=== PATIENT | female | born 1980 | race African-American/Black ===

== ENCOUNTER 2017-03-08 01:32 | Emergency (ER) | payer OTHER ==
[~2017-03-08] VITALS: Ht 160 cm; Wt 48.1 kg
--- NOTE | ~2017-03-08 | EKG ---
[address] [place] [address] ELECTROCARDIOGRAM REPORT Name: YAMEL JETT [id number] Admission: 03/08/17 Attend Phys: Discharge: 03/08/17 Date of : 82 Report #: [id number] THIS REPORT FOR: //name// [facility] ED Test Date: 2017-03-08 Test Time: 01:36:54 Pat Name: YAMEL JETT Department: Room: Gender: F Superintendent Service: JENAE : 1980 Requested By: Lynette Posey Order Number: [id number] MD: Sg Lord Measurements Intervals [place] Rate: 86 P: 45 ME: 169 QRS: 5 QRSD: 88 T: 15 QT: 381 QTc: 456 Interpretive Statements Sinus rhythm Anterior infarct, age indeterminate No previous ECG available for comparison Electronically Signed On 03-08-2017 17:53:55 CDT by Sg Lord [email or web address] <ELECTRONICALLY SIGNED> By: Sg Lord MD, [facility] 03/08/17 1753 0136 0136 Sg Lord MD, FACC /EPI
[~2017-03-08 01:32] MED LIST: DEPO-PROVERA; HYDROXYZINE HCL25 M1 PO; IBUPROFEN 400400 M2 PO; MEDROLDOSEPACK PO; NOHOMEMEDICATIONS; NORCO 5-325 TA1 EACH PO; PERCOCET PO; TRAMADOL 50 MG50 MG PO; TRINATE TABLET1 TAB PO
[2017-03-08 01:49] LABS: ABSOLUTE NEUTROPHILS 2.8 thou/uL (1.4-8.2); BASOPHILS 0.7 % (0.0-2.0); EOSINOPHILS 0.7 % (0.0-3.0); LYMPHOCYTES 49.6 % (24.0-44.0); MCH 26.2 pg (26.0-34.0); MCHC 33.2 g/dL (28.0-37.0); MCV 78.9 fL (80.0-100.0); MONOCYTES 6.6 % (1.0-8.0); PLATELET COUNT 245 thou/uL (150-400); POLYS 42.4 % (36.0-66.0); RBC 4.95 mil/uL (4.20-5.00); RDW 16.1 % (10.5-14.5); WBC 6.7 thou/uL (4.0-11.0)
[2017-03-08 01:51] LABS: URINE BILIRUBIN NEGATIVE (Negative); URINE BLOOD NEGATIVE (Negative); URINE COLOR YELLOW; URINE GLUCOSE-RANDOM* NEGATIVE (Negative); URINE KETONES NEGATIVE (Negative); URINE NITRITE NEGATIVE (Negative); URINE PROTEIN (DIPSTICK) NEGATIVE (Negative); URINE SPECIFIC GRAVITY <= 1.005 (1.003-1.035); URINE UROBILINOGEN 0.2 E.U./dl (0.2-1.0)
[2017-03-08 01:53] LABS: MANUAL DIFF NO
[2017-03-08 01:55] LABS: ANION GAP 15 mmol/L (7-16); BUN 9 mg/dL (7-18); CALCIUM 9.4 mg/dL (8.5-10.1); CHLORIDE 102 mmol/L (98-107); CO2 23 mmol/L (21-32); CREATININE 0.7 mg/dL (0.6-1.0); GLUCOSE 93 mg/dL (74-106); POTASSIUM 3.1 mmol/L (3.5-5.1); SODIUM 140 mmol/L (136-145)
[2017-03-08 02:04] LABS: TROPONIN-I < 0.04 ng/mL (<0.04-0.07)
[2017-03-08] MEDS ORDERED: NORCO 5-325 TA1 EACH PO (02:12)
[2017-03-08 02:30] VITALS: BP 144/108
== END 2017-03-08 02:30 | disposition home or self-care (01) ==
LOC: ER 01:32
PROVIDERS: Emergency Medicine
DX: R07.89 Other chest pain (principal); E87.6 Hypokalemia; R09.1 Pleurisy; Z90.49 Acquired absence of other specified parts of digestive tract; F10.99 Alcohol use, unspecified with unspecified alcohol-induced disorder

== ENCOUNTER 2018-02-07 20:50 | Emergency (ER) | payer OTHER ==
[~2018-02-07] VITALS: Ht 160 cm; Wt 45.8 kg
--- NOTE | ~2018-02-07 | EKG ---
[address] [place] [address] ELECTROCARDIOGRAM REPORT Name: YAMEL JETT [facility] [id number] Admission: 02/07/18 Attend Phys: Discharge: 02/07/18 Date of : 82 Report #: [id number] THIS REPORT FOR: //name// [facility] ED Test Date: 2018-02-07 Test Time: 22:18:44 Pat Name: YAMEL JETT Department: Room: Gender: F Toddler Guide: sharla reynoso : 1980 Requested By: Umair Garza Order Number: [id number] MD: Sg Lord Measurements Intervals [place] Rate: 85 P: 51 ND: 171 QRS: 6 QRSD: 82 T: 7 QT: 366 QTc: 436 Interpretive Statements Sinus rhythm Right ventricular conduction delay Anterior infarct, age indeterminate Compared to ECG 03/08/2017 01:36:54 No significant changes Electronically Signed On 02-08-2018 8:04:23 CDT by Sg Lord [email or web address] <ELECTRONICALLY SIGNED> By: Sg Lord MD, [facility] 02/08/18 0804 17 17 Sg Lord MD, [facility] /EPI
[~2018-02-07 20:50] MED LIST changes: +BIRTH CONTROL PILL; +LOPRESSOR50 PO; +PRINIVIL10 MG PO
[2018-02-07] MEDS ORDERED: DEPO-PROVE150 MG/11 IM (21:37)
[2018-02-07 22:43] LABS: ABSOLUTE NEUTROPHILS 2.6 thou/uL (1.4-8.2); BASOPHILS 0.4 % (0.0-2.0); HEMATOCRIT 35.3 % (37.0-47.0); LYMPHOCYTES 46.8 % (24.0-44.0); MCH 26.4 pg (26.0-34.0); MCV 77.7 fL (80.0-100.0); MONOCYTES 8.7 % (1.0-8.0); PLATELET COUNT 221 thou/uL (150-400); POLYS 43.1 % (36.0-66.0); RBC 4.54 mil/uL (4.20-5.00); RDW 15.6 % (10.5-14.5)
[2018-02-07 22:50] LABS: ANION GAP 17 mmol/L (7-16); BUN 10 mg/dL (7-18); CALCIUM 9.4 mg/dL (8.5-10.1); CHLORIDE 103 mmol/L (98-107); CO2 22 mmol/L (21-32); CREATININE 0.7 mg/dL (0.6-1.0); GLUCOSE 97 mg/dL (74-106); POTASSIUM 3.1 mmol/L (3.5-5.1); SODIUM 142 mmol/L (136-145)
[2018-02-07 22:59] LABS: TROPONIN-I <0.06 ng/mL (<0.06)
[2018-02-07] MEDS ORDERED: K-DUR 20 MEQ T20 MEQ PO (23:31)
[2018-02-07] MEDS ORDERED: NORVASC2.5 MG PO (23:45)
[2018-02-07 23:53] VITALS: BP 145/104
== END 2018-02-07 23:57 | disposition home or self-care (01) ==
LOC: ER 20:50
PROVIDERS: Physician Assistant
DX: I10 Essential (primary) hypertension (principal); E87.6 Hypokalemia; M79.672 Pain in left foot; R07.89 Other chest pain; F17.210 Nicotine dependence, cigarettes, uncomplicated; Z90.49 Acquired absence of other specified parts of digestive tract; Z98.890 Other specified postprocedural states

== ENCOUNTER 2020-02-27 02:35 | Emergency (ER) | payer OTHER ==
[~2020-02-27] VITALS: Ht 160 cm; Wt 47.6 kg
[~2020-02-27 02:35] MED LIST changes: +DEPO-PROVE150 MG/11 IM; +K-DUR 20 MEQ T20 MEQ PO; +NORVASC2.5 MG PO
[2020-02-27 02:36] VITALS: BP 158/115
== END 2020-02-27 03:41 | disposition home or self-care (01) ==
LOC: ER 02:35
DX: R05 Cough (principal); N94.89 Other specified conditions associated with female genital organs and menstrual cycle; I10 Essential (primary) hypertension; F17.210 Nicotine dependence, cigarettes, uncomplicated; Z90.49 Acquired absence of other specified parts of digestive tract

== ENCOUNTER 2020-10-04 05:17 | Emergency (ER) | payer OTHER ==
[~2020-10-04] VITALS: Ht 160 cm; Wt 47.6 kg
[2020-10-04 06:01] LABS: ABSOLUTE NEUTROPHILS 4.1 thou/uL (1.4-8.2); BASOPHILS 0.5 % (0.0-2.0); EOSINOPHILS 0.4 % (0.0-3.0); HEMATOCRIT 35.3 % (37.0-47.0); HEMOGLOBIN 11.5 gm/dL (12.0-15.0); MCH 25.4 pg (26.0-34.0); MCHC 32.6 g/dL (28.0-37.0); MCV 77.7 fL (80.0-100.0); MONOCYTES 7.4 % (1.0-8.0); PLATELET COUNT 223 thou/uL (150-400); POLYS 54.7 % (36.0-66.0); RBC 4.55 mil/uL (4.20-5.00); RDW 14.5 % (10.5-14.5); WBC 7.6 thou/uL (4.0-11.0)
[2020-10-04 06:20] LABS: URINE BILIRUBIN NEGATIVE (Negative); URINE BLOOD TRACE (Negative); URINE CLARITY CLEAR; URINE COLOR YELLOW; URINE GLUCOSE-RANDOM* NEGATIVE (Negative); URINE KETONES NEGATIVE (Negative); URINE LEUKOCYTES-REFLEX TRACE (Negative); URINE NITRITE-REFLEX NEGATIVE (Negative); URINE PROTEIN (DIPSTICK) TRACE (Negative); URINE SPECIFIC GRAVITY 1.015 (1.005-1.035)
[2020-10-04 06:26] LABS: CALCIUM 8.9 mg/dL (8.5-10.1); CREATININE 0.5 mg/dL (0.6-1.0); POTASSIUM 3.5 mmol/L (3.5-5.1)
[2020-10-04 06:29] LABS: ALBUMIN 3.6 g/dL (3.4-5.0); TOTAL BILIRUBIN 0.9 mg/dL (0.2-1.0); TOTAL PROTEIN 7.6 g/dL (6.4-8.2)
[2020-10-04] MEDS ORDERED: ZOFRAN ODT4 MG PO (09:06)
[2020-10-04] MEDS ORDERED: NORCO5 PO (09:06)
[2020-10-04] MEDS ORDERED: MACROBID 100 M100 M1 PO (09:06)
[2020-10-04 09:41] VITALS: BP 133/94
== END 2020-10-04 09:42 | disposition home or self-care (01) ==
LOC: ER 05:17
PROVIDERS: Emergency Medicine
DX: R10.31 Right lower quadrant pain (principal); I10 Essential (primary) hypertension; F17.210 Nicotine dependence, cigarettes, uncomplicated; Z90.49 Acquired absence of other specified parts of digestive tract

== ENCOUNTER 2021-02-12 01:32 | Emergency (ER) | payer OTHER ==
[~2021-02-12] VITALS: Ht 160 cm; Wt 47.6 kg
[~2021-02-12 01:32] MED LIST changes: +MACROBID 100 M100 M1 PO; +NORCO5 PO; +ZOFRAN ODT4 MG PO
[2021-02-12 01:40] VITALS: BP 138/95
[2021-02-12] MEDS ORDERED: MOBIC15 MG PO (03:47)
== END 2021-02-12 04:33 | disposition home or self-care (01) ==
LOC: ER 01:32
DX: M25.572 Pain in left ankle and joints of left foot (principal); I10 Essential (primary) hypertension; F17.210 Nicotine dependence, cigarettes, uncomplicated; Z98.890 Other specified postprocedural states; Z90.49 Acquired absence of other specified parts of digestive tract; Z79.891 Long term (current) use of opiate analgesic; Z79.899 Other long term (current) drug therapy

== ENCOUNTER 2021-04-12 04:27 | Inpatient (IN) | payer OTHER ==
[2021-04-12] VITALS (16 sets, daily range): BP systolic 93–140; BP diastolic 62–104
[~2021-04-12] VITALS: Ht 162.6 cm; Wt 43.1 kg
--- NOTE | ~2021-04-12 | HC ---
[facility] [address] [place] [address] CONSULTATION Name: YAMEL JETT Room #: 244-P ADM IN M.R.#: [id number] Admission: 04/12/21 Attend Phys: Marv Rapheal Discharge: Date of : 82 Report #: [id number] THIS REPORT FOR: cc: [facility] - Clinic physician unknown [facility] - Clinic physician unknown Evonne Todd DO ~ cc: Marv Raphael MD NEUROLOGY CONSULTATION HISTORY OF PRESENT ILLNESS: The patient is a 40-year-old female who was brought in by her for episodes of shaking. I spoke to the patient's as the patient was unable to provide any history. When I spoke to the patient and asked her to open her eyes, she only raised her eyebrows. Her states that she had several episodes lasting 30 seconds where her head would shake back and forth and she would bring her arms into her body and shake as though she was shivering. To his knowledge, her legs were not moving. After several of these episodes, her called the EMS. She had three more of these episodes and she was given 2 mg of lorazepam. When I spoke to her and he states that these episodes began several months ago. He also admitted that the patient is under stress. She does work and drives to work. The patient has not seen a physician for these episodes. This is the first time she is being evaluated for them. During these episodes, there is no tongue biting. There is no loss of bladder control. PAST MEDICAL HISTORY: Negative. PAST SURGICAL HISTORY: section, cholecystectomy, right ankle surgery. MEDICATIONS: Meloxicam 15 mg p.r.n. ALLERGIES: None. VITAL SIGNS: Temperature 36.8, pulse rate 83, respiratory rate 20, blood pressure 93/62, bedside pulse oximetry 98%. LABORATORY DATA: Hematology: White blood cell count 6.4, hemoglobin 11.5, hematocrit 34.3, MCV 78.8, platelet count 220,000. Urinalysis, 1+ glucose. Blood gas pH 7.361, pCO2 of 42.3, pO2 of 96.4, oxygen saturation 97.1. [address] [address] CONSULTATION Name: YAMEL JETT Room #: 244-P [facility] IN .R.#: [id number] Admission: 04/12/21 Attend Phys: Marv Raphael Discharge: Date of : 82 Report #: [id number] Chemistry: Sodium 143, potassium 3.6, chloride 108, carbon dioxide 25, BUN 12, creatinine 0.5, GFR 166, glucose 163. Lactic acid 3.7, calcium 8.4, magnesium 1.9, total bilirubin 0.9, direct bilirubin 0.2, AST 22, ALT 18, alkaline phosphatase 44, albumin 3.5. TSH 1.278. Serum negative. Alcohol level 357. IMAGING: CT scan of the head shows no acute intracranial process. CT scan of the chest shows no acute intracranial process. NEUROLOGIC EXAM: On examination, the patient was asked to open her eyes. She just raised her eyebrows; however, facial expressions appeared symmetrical bilaterally. Tongue and palate could not be examined. She did not cooperate with shoulder shrug. Motor exam, I held her hands away from her body, she was able to keep them elevated perpendicular to her body. She is able to move her legs in bed. Reflexes are trace. Plantar responses are flexor bilaterally. She was able to, with encouragement, perform limited [id number]. There was no evidence of dysmetria. 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 The patient has had an EEG, it was normal. However, it is in the patient's best interest to continue levetiracetam until further evaluation can be performed. She is currently on levetiracetam 500 mg q. 12 hours and I would continue this dose and send the patient home with this dose. I explained to her that she cannot drive until she is 6 months without one of these spells unless these episodes are confirmed to be nonconvulsive events that would be done by monitoring the patient in an inpatient setting while she had one of these episodes, which can sometimes be very difficult to capture. Thus, I feel that continuing levetiracetam is safer for the patient than sending her own home with no antiepileptic medication at all. I explained to her that if these episodes continue, she would need to be referred to an epileptologist, which can either be at [facility] or at . I asked her that she was under stress and apparently she is. I believe the nurse had spoken to her about a psychiatrist and he was adamant that he did not want her seeing a psychiatrist. I thank you for your kind referral of the patient. By: 0922 1006 Evonne Todd DO /nt
[~2021-04-12 04:27] MED LIST changes: +MOBIC15 MG PO
[2021-04-12 04:48] LABS: ABSOLUTE NEUTROPHILS 3.3 thou/uL (1.4-8.2); EOSINOPHILS 0.9 % (0.0-3.0); HEMATOCRIT 34.3 % (37.0-47.0); HEMOGLOBIN 11.5 gm/dL (12.0-15.0); LYMPHOCYTES 38.2 % (24.0-44.0); MCH 26.5 pg (26.0-34.0); MCHC 33.6 g/dL (28.0-37.0); MCV 78.8 fL (80.0-100.0); MONOCYTES 7.9 % (1.0-8.0); PLATELET COUNT 220 thou/uL (150-400); RBC 4.35 mil/uL (4.20-5.00); WBC 6.4 thou/uL (4.0-11.0)
[2021-04-12 04:58] LABS: ALBUMIN 3.5 g/dL (3.4-5.0); CALCIUM 8.4 mg/dL (8.5-10.1); CREATININE 0.5 mg/dL (0.6-1.0); TOTAL BILIRUBIN 0.9 mg/dL (0.2-1.0); TOTAL PROTEIN 7.4 g/dL (6.4-8.2)
[2021-04-12 05:01] LABS: POTASSIUM 2.7 mmol/L (3.5-5.1)
[2021-04-12 05:20] LABS: URINE BILIRUBIN NEGATIVE (Negative); URINE BLOOD NEGATIVE (Negative); URINE CLARITY CLEAR; URINE COLOR YELLOW; URINE GLUCOSE-RANDOM* 1+ (Negative); URINE KETONES NEGATIVE (Negative); URINE LEUKOCYTES-REFLEX NEGATIVE (Negative); URINE NITRITE-REFLEX NEGATIVE (Negative); URINE PROTEIN (DIPSTICK) NEGATIVE (Negative); URINE SPECIFIC GRAVITY <= 1.005 (1.005-1.035); URINE UROBILINOGEN 0.2 E.U./dl (0.2-1.0)
[2021-04-12 05:57] LABS: HCO3 23.4 mmol/L (22.0-26.0); PCO2 42.3 mmHg (35.0-45.0); PO2 96.4 mmHg (80.0-100.0); pH 7.361 (7.360-7.450); sO2 97.1 % (92.0-98.0)
--- NOTE | 2021-04-12 08:00 | NUR ---
PT ARRIVED FROM ER TO ICU FOR STATUS EPILEPTICUS AT 0740 AM ACCOMPANIED BY ER RNS. PT WAS CONNECTED TO ICU MONITORS.ON ARRIVAL TO ICU PT HAS IV FLUIDS. IVPB POTASSIUM AND IVPB MAGNESIUM. PT IS DROWSY. PT OPENS EYES TO VOICE AND FOLLOWS COMMANDS TO VOICE. PT WAS ABLE TO VERBALIZED HER NAME. PT WENT BACK TO SLEEP. MEAT BONER INFORMED THIS RN THAT THE IS WAITING OUTSIDE THE ICU.
--- NOTE | 2021-04-12 08:30 | NUR ---
THIS RN BROUGHT SANDRITA JETT TO THE PATIENT ROOM. THIS RN ASKED ADMISSION QUESTIONS. WHEN ASKED ABOUT THE CAUSE OF PATIENT DRINKING, GOT DEFENSIVE AND REFUSED TO ANSWER ANY FURTHER QUESTIONS. PER THE , PATIENT AND HIMSELF ARE GOING THROUGH SOMETHING AND HE REFUSE TO DISCUSS THAT WITH US. WAS AGITATED AND DEMANDED TO TAKE THE PATIENT HOME SOON THE PATIENT IS DONE WITH THE EEG. DR. MONK AT BEDSIDE. TALKED TO THE . PER DR. MONK, HE WILL DISCHARGE THE PATIENT AFTER SHE WAKES UP. DOESNT WANT TO LEAVE PATIENT'S SIDE. SECURITY WAS ALERTED FOR PATIENT'S BEHAVIORAL THREAT TO THIS RN.
--- NOTE | 2021-04-12 09:37 | EKG ---
[place] [address] [place] [address] ELECTROCARDIOGRAM REPORT Name: YAMEL JETT Room #: 244-P ADM IN M.R.#: [id number] Admission: 04/12/21 Attend Phys: Marv Raphael Discharge: Date of : 82 Report #: [id number] [facility] ED Test Date: 2021-04-12 Test Time: 04:56:39 Pat Name: YAMEL JETT Department: Room: 244 Gender: F Technology Advisor: sera : 1980 Requested By: Reese Peck Order Number: [id number] MD: Sg Lord Measurements Intervals [place] Rate: 80 P: 65 MN: 191 QRS: 19 QRSD: 96 T: 46 QT: 402 QTc: 464 Interpretive Statements Sinus rhythm Probable left atrial enlargement Anteroseptal infarct, age indeterminate Compared to ECG 02/07/2018 22:18:44 No significant changes Electronically Signed On 04-12-2021 9:37:22 CDT by Sg Lord [email or web address] <ELECTRONICALLY SIGNED> By: Sg Lord MD, [facility] 04/12/21 0937 0456 5 Sg Lord MD, FACC /EPI
--- NOTE | 2021-04-12 10:19 | NUR ---
Frequent rounds by the security. calmed down than before. Dr. Todd at bedside. Both Dr. Raphael and Dr. Todd did not want [facility] consult on this patient.
--- NOTE | 2021-04-12 10:50 | EEG ---
[facility] [place] [address] ELECTROENCEPHALOGRAM Name: YAMEL JETT Room #: 244-P [facility] IN M.R.#: [id number] Admission: 04/12/21 Attend Phys: Marv Pittman Discharge: Date of : 82 Report #: [id number] THIS REPORT FOR: //name// DATE OF SERVICE: 04/12/2021 HISTORY: The patient is a 40-year-old female with episodes of shaking of the head and drawing the arms into her, described by her as shivering. An EEG is requested for further evaluation. DESCRIPTION: Using the 10-20 electrode system, an EEG was performed at the bedside. The record consists of moderate amplitude 10 cycle per second activity predominant over the central head regions. Photic stimulation was nonactivating. No focal abnormalities or epileptiform discharges were noted. IMPRESSION: This is an essentially normal adult sleep record. No focal abnormalities or epileptiform discharges were noted. Please keep in mind that a normal electroencephalogram does not rule out a seizure disorder. <ELECTRONICALLY SIGNED> By: Evonne Todd DO 04/12/21 1050 0936 Evonne Todd DO /nt
[2021-04-12] MEDS ORDERED: KEPPRA XR500 MG PO (15:30)
--- NOTE | 2021-04-12 18:41 | NUR ---
PT POTASSIUM 2.7 60 MEQ KCL REPLACED. POTASSSIUM RECHECK NOT DONE PER DR. MONK BEFORE DISCHARGE.
== END 2021-04-12 18:15 | disposition home or self-care (01) | DRG 101 ==
LOC: ER 04:27 → EROBS 05:54 → ICU 07:43
PROVIDERS: Emergency Medicine; ADMIT Hospitalist; ATTEND Hospitalist
DX: G40.909 Epilepsy, unspecified, not intractable, without status epilepticus (principal); I10 Essential (primary) hypertension; F17.210 Nicotine dependence, cigarettes, uncomplicated; E87.6 Hypokalemia; F10.129 Alcohol abuse with intoxication, unspecified; Z20.822 Contact with and (suspected) exposure to COVID-19; Z90.49 Acquired absence of other specified parts of digestive tract
CPT/HCPCS: 10078